=== PATIENT | male | born 1975 | race Caucasian/White ===

== ENCOUNTER 2016-08-23 00:29 | Emergency (ER) | payer OTHER ==
--- NOTE | 2016-08-23 19:59 | ER ---
ADMIT: 08/23/2016 RM/LOC: ER [facility] MR#: [id number] [address] [facility] [address] [place], [place] [id number] [address]DA DALTON [address] [facility] [place] [address] Emergency Room Report SEX: M AGE: 40 : 1975 DATE: 08/23/2016 HISTORY OF PRESENT ILLNESS: The patient is a 40-year-old male with past medical history of asthma and palpitation for which 2 years ago, he had complete workup under supervision of Dr. Squires and also had an episode of SVT also and had Holter monitoring and echocardiogram and he was given Bystolic 2.5 mg daily, which the patient stopped on April 2016, because of the bradycardia and hypotension. The patient states since then 2 years ago, he did not have any heart racing, but today while sitting and eating ice cream at night, he noticed palpitation which is intermittent, lasts for a few seconds and returns back. The patient denies taking any new medications. The patient also denies any chest pain or shortness of breath or leg swelling or leg pain or extremity pain. First 12-lead EKG was suggestive of atrial fibrillation with a rate of 108, QT corrected was 469 milliseconds,. The patient received 1 L IV fluids and was put on 4 L nasal cannula oxygen. PHYSICAL EXAMINATION: GENERAL: The patient was in no obvious pain or distress, sitting in bed. HEAD and NECK: Negative. Trachea midline. No bruit on the neck. CHEST: Clear to auscultation. HEART: Normal heart sounds without any murmurs or gallops. ABDOMEN: Soft without any pulsating masses. The rest of the physical exam is noncontributory and negative. LABORATORY DATA: The patient had TSH of 3.9, with free T4 of 0.97, and troponin level was negative. The rest of the lab work was noncontributory. EMERGENCY ROOM COURSE: Dr. Patricio, formal waiter/waitress, was consulted and he advised that the patient could be followed up as outpatient for the echocardiogram and could be discharged to home with Xarelto and Cardizem LA 180 mg daily. The patient was given the first dose of Xarelto 20 mg p.o. in the ER and the first dose of Cardizem LA 180 mg, and did not develop hypotension or bradycardia in the ER. DIAGNOSES: The patient was discharged to home with diagnoses of new-onset atrial fibrillation and palpitation. PLAN: To be followed up by Dr. Patricio for echocardiogram and further treatments. Shaka Russo MD/ kendra JOB #: [id number] CC: Shaka Russo MD, Attending Physician Orlando Ramos MD, Family Physician
== END 2016-08-23 02:35 | disposition home or self-care (01) ==
LOC: ER 00:29
DX: I48.91 Unspecified atrial fibrillation (principal); R00.2 Palpitations; J45.909 Unspecified asthma, uncomplicated; Z79.899 Other long term (current) drug therapy; Z88.0 Allergy status to penicillin; Z90.89 Acquired absence of other organs; Z98.890 Other specified postprocedural states